=== PATIENT | male | born 1990 | race Caucasian/White ===

== ENCOUNTER 2017-06-17 15:55 | Outpatient (CLI) | payer SELFPAY ==
--- NOTE | 2017-06-17 16:32 | RAD ---
CHEST 2 VIEWS: Date: 06/17/17 HISTORY: [employer] physical. COMPARISON: None. FINDINGS: Lungs are clear. No pneumothorax or effusion. Cardiac silhouette and mediastinal contours are within normal limits. IMPRESSION: No acute intrathoracic abnormality. POS: ANIKAH
--- NOTE | 2017-06-17 16:33 | RAD ---
LUMBAR SPINE 2 VIEWS: Date: 06/17/17 HISTORY: [employer] physical. COMPARISON: None. FINDINGS: Mild levoscoliosis centered at L1-2. No acute fracture or malalignment. Paraspinal soft tissues are u nremarkable. Five non-rib bearing lumbar-type vertebra. No significant listhesis. IMPRESSION: Low grade levoscoliosis at L1-2. No acute abnormality. POS: ANIKA
== END 2017-06-17 15:56 | disposition home or self-care (01) ==
LOC: SCSRAD 15:55
PROVIDERS: ATTEND Nurse Practitioner Family
DX: Z02.1 Encounter for pre-employment examination (principal); M41.86 Other forms of scoliosis, lumbar region
CPT/HCPCS: 71046; 72100